=== PATIENT | male | born 1995 | race Caucasian/White ===

== ENCOUNTER → 2022-09-17 | Outpatient (REF) | payer OTHER | LOC: M SMT 17:25 | PROVIDERS: ATTEND Urology | DX: Z30.2 Encounter for sterilization (principal) ==

== ENCOUNTER → 2023-02-24 | Outpatient (REF) | payer OTHER ==
[2023-02-24 12:36] LABS: SEMEN APPEARANCE OPAQUE (OPAQUE); SEMEN VISCOSITY LIQUID (LIQUID); WBC CONCENTRATION >1 M/ml (<=1 M/ml)
== END ==
LOC: M SMT 10:11
PROVIDERS: ATTEND Urology
DX: Z30.2 Encounter for sterilization (principal)